=== PATIENT | male | born 1960 | race Caucasian/White ===

== ENCOUNTER → 2021-07-31 | Outpatient (CLI) | payer OTHER ==
--- NOTE | 2021-07-31 15:44 | RAD ---
Study: XR KNEE 4 VIEWS WITH PATELLA_RT Indication: Fall. Pain. Comparison: None. Findings: Maintained femorotibial compartment joint space height. Arthrosis at the knee is mild. No large joint effusion. Alignment is within normal limits to include positioning of the patella. 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 Impression: No acute fracture or traumatic malalignment. Mild arthrosis. Electronically signed by: ELIDIA AGUIRRE MD (07/31/2021 3:41 PM) [facility]
== END ==
LOC: RAD 14:13
PROVIDERS: ATTEND Nurse Practitioner Family
DX: M17.11 Unilateral primary osteoarthritis, right knee (principal)
CPT/HCPCS: 73564